=== PATIENT | female | born 1990 | race African-American/Black ===

== ENCOUNTER 2018-12-24 19:30 | Emergency (ER) | payer SELFPAY ==
--- NOTE | 2018-12-24 20:14 | EDM.PDOC ---
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 No trauma or other concern Review of systems: As per history of present illness and below otherwise all systems reviewed and negative. Past medical history: As per history of present illness and as reviewed below otherwise noncontributory. Surgical history: As per history of present illness and as reviewed below otherwise noncontributory. Social history: No reported history of drug or alcohol abuse. Family history: As per history of present illness and as reviewed below otherwise noncontributory. Physical exam: HEENT: Atraumatic, normocephalic, pupils reactive, negative for conjunctival pallor or scleral icterus, mucous membranes moist, throat clear, neck supple, nontender, trachea midline. Lungs: Clear to auscultation, breath sounds equal bilaterally, chest nontender. Heart: S1S2, regular, negative for clicks, rubs, or JVD. Abdomen: Soft, nondistended, nontender. Negative for masses or hepatosplenomegaly. Negative for costovertebral tenderness. Pelvis: Stable nontender. Genitourinary: Deferred. Rectal: Deferred. Extremities: Atraumatic, negative for cords or calf pain. Neurovascular unremarkable. Neuro: Awake, alert, oriented. Cranial nerves II through XII unremarkable. Cerebellum unremarkable. Motor and sensory unremarkable throughout. Exam nonfocal. Diagnostics: Quantitative beta CBC ABO Rh pelvic ultrasound Therapeutics: None Impression: #1 threatened Definitive disposition and diagnosis as appropriate pending reevaluation and review of above. 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 7 weeks Musculoskeletal History: Reports: None Neurological History: Reports: None Psychiatric History: Reports: None Endocrine/Metabolic History: Reports: None Hematologic History: Reports: None Immunologic History: Reports: None Oncologic (Cancer) History: Reports: None Dermatologic History: Reports: None - Infectious Disease History Infectious Disease History: Reports: Chicken Pox - Past Surgical History Head Surgeries/Procedures: Reports: None Social & Family History - Tobacco Use Smoking Status *Q: Never Smoker - Recreational Drug Use Recreational Drug Use: No ED ROS GENERAL - Review of Systems Review Of Systems: ROS reveals no pertinent complaints other than HPI. ED EXAM, GENERAL - Physical Exam Exam: See Below (See dictation) Course - Vital Signs Text/Narrative:: Patient's emergency room course is unremarkable ultrasound demonstrates a approximate 6 week intrauterine by crown-rump measurement with no heartbeat quantitative beta was 4000+ patient's ABO Rh was all negative RhoGAM was ordered I discussed case with OB on-call who agrees with follow-up on Wednesday I discussed with patient my concern about a possible missed patient be discharged on vaginal rest and follow-up on Wednesday Last Recorded V/S: Last Vital Signs Temp 36.6 C 12/24/18 22:31 Pulse 84 12/24/18 22:31 Resp 15 12/24/18 22:31 BP 117/61 12/24/18 22:31 Pulse Ox 98 12/24/18 19:45 - Orders/Labs/Meds Labs: Laboratory Tests 12/24/18 12/24/18 12/24/18 Range/Units 19:59 19:59 19:59 WBC 9.52 (4.0-11.0) K/uL RBC 4.31 (4.30-5.90) M/uL Hgb 11.2 L (12.0-16.0) g/dL Hct 35.2 L (36.0-46.0) % MCV 81.7 (80.0-98.0) fL MCH 26.0 L (27.0-32.0) pg MCHC 31.8 (31.0-37.0) g/dL RDW Std Deviation 44.7 (28.0-62.0) fl RDW Coeff of Tammy 15 (11.0-15.0) % Plt Count 307 (150-400) K/uL MPV 9.50 (7.40-12.00) fL Neut % (Auto) 57.5 (48.0-80.0) % Lymph % (Auto) 32.6 (16.0-40.0) % Thomas % (Auto) 9.2 (0.0-15.0) % Eos % (Auto) 0.6 (0.0-7.0) % Baso % (Auto) 0.1 (0.0-1.5) % Neut # (Auto) 5.5 (1.4-5.7) K/uL Lymph # (Auto) 3.1 H (0.6-2.4) K/uL Thomas # (Auto) 0.9 H (0.0-0.8) K/uL Eos # (Auto) 0.1 (0.0-0.7) K/uL Baso # (Auto) 0.0 (0.0-0.1) K/uL Nucleated RBC % 0.0 /100WBC Nucleated RBCs # 0 K/uL HCG, Quant 4632.0 mIU/mL Blood Type O NEGATIVE Antibody Screen Rhogam Indicated 12/24/18 Range/Units 19:59 WBC (4.0-11.0) K/uL RBC (4.30-5.90) M/uL Hgb (12.0-16.0) g/dL Hct (36.0-46.0) % MCV (80.0-98.0) fL MCH (27.0-32.0) pg MCHC (31.0-37.0) g/dL RDW Std Deviation (28.0-62.0) fl RDW Coeff of Tammy (11.0-15.0) % Plt Count (150-400) K/uL MPV (7.40-12.00) fL Neut % (Auto) (48.0-80.0) % Lymph % (Auto) (16.0-40.0) % Thomas % (Auto) (0.0-15.0) % Eos % (Auto) (0.0-7.0) % Baso % (Auto) (0.0-1.5) % Neut # (Auto) (1.4-5.7) K/uL Lymph # (Auto) (0.6-2.4) K/uL Thomas # (Auto) (0.0-0.8) K/uL Eos # (Auto) (0.0-0.7) K/uL Baso # (Auto) (0.0-0.1) K/uL Nucleated RBC % /100WBC Nucleated RBCs # K/uL HCG, Quant mIU/mL Blood Type TNP Antibody Screen NEGATIVE Rhogam Indicated YES Departure - Departure Time of Disposition: 22:33 Disposition: Home, Self-Care 01 Condition: Good Clinical Impression: First trimester bleeding - Discharge Information Referrals: PCP,Not In Area [Primary Care Provider] - Forms: ED Department Discharge Additional Instructions: The following information is given to patients seen in the emergency department who are being discharged to home. This information is to outline your options for follow-up care. We provide all patients seen in our emergency department with a follow-up referral. The need for follow-up, as well as the timing and circumstances, are variable depending upon the specifics of your emergency department visit. If you don't have a primary care physician on staff, we will provide you with a referral. We always advise you to contact your personal physician following an emergency department visit to inform them of the circumstance of the visit and for follow-up with them and/or the need for any referrals to a consulting specialist. The emergency department will also refer you to a specialist when appropriate. This referral assures that you have the opportunity for followup care with a specialist. All of these measure are taken in an effort to provide you with optimal care, which includes your followup. Under all circumstances we always encourage you to contact your private physician who remains a resource for coordinating your care. When calling for followup care, please make the office aware that this follow-up is from your recent emergency room visit. If for any reason you are refused follow-up, please contact the [facility] emergency department at and asked to speak to the emergency department charge nurse. Follow-up Wednesday [facility] [address] [place] [address] Vaginal rest as discussed return as needed as discussed
--- NOTE | 2018-12-24 21:15 | US ---
INDICATION: Vaginal bleeding and . FINDINGS: There is an early intrauterine identified. The average crown-rump length is approximately 6 mm. No cardiac activity is noted. Yolk sac is noted. 2 cm left ovarian cyst is noted. Right ovary is within normal limits. No free fluid is noted. IMPRESSION: 1. There is a 6 mm crown-rump length noted corresponding 6 weeks +4 days and EDC of 08/16/2019. No cardiac activity is identified. Findings concerning for a demise and recommend serial beta HCG levels with followup ultrasound as clinically indicated. 2. There is a left ovarian cyst. Right ovary is within normal limits. No significant free fluid is seen. Dictated by Amor Franks MD @ Dec 24 2018 9:06PM Signed by Dr. Amor Franks @ Dec 24 2018 9:14PM
== END 2018-12-24 22:52 | disposition home or self-care (01) ==
LOC: MW.ED 19:30
DX: O20.0 Threatened abortion (principal); Z3A.01 Less than 8 weeks gestation of pregnancy
CPT/HCPCS: 36415; 76801; 84702; 85025; 86850; 86900; 86901; 99284; J2792; 36430

== ENCOUNTER 2018-12-27 15:02 | Emergency (ER) | payer MEDICAID ==
--- NOTE | 2018-12-27 17:43 | EDM.PDOC ---
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 Patient states that on December 24 she was seen in this emergency room for a miscarriage at 6-7 weeks of . At that time she had vaginal bleeding and cramping. An ultrasound indicated no heartbeat. She presented today because she states she has been bleeding heavily since that time. She states she doesn't want any medications. She did not follow-up with TEXTILE MACHINE MECHANIC as instructed. She denies lightheadedness, fainting, nausea, dysuria or any other vaginal symptoms besides bleeding. abdominal pain Pain Score (Numeric/FACES): 10 - Related Data Allergies Allergy/AdvReac Type Severity Reaction Status Date / Time No Known Allergies Allergy Verified 12/27/18 15:21 Home Meds: Home Meds . 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 Musculoskeletal History: Reports: None Neurological History: Reports: None Psychiatric History: Reports: None Endocrine/Metabolic History: Reports: None Hematologic History: Reports: None Immunologic History: Reports: None Oncologic (Cancer) History: Reports: None Dermatologic History: Reports: None - Infectious Disease History Infectious Disease History: Reports: Chicken Pox - Past Surgical History Head Surgeries/Procedures: Reports: None Social & Family History - Tobacco Use Smoking Status *Q: Never Smoker - Caffeine Use Caffeine Use: Reports: None - Recreational Drug Use Recreational Drug Use: No ED ROS GENERAL - Review of Systems Review Of Systems: ROS reveals no pertinent complaints other than HPI. ED EXAM - Physical Exam Exam: See Below Exam Limited By: No Limitations General Appearance: Alert, No Apparent Distress Ears: Normal External Exam Nose: Normal Inspection Throat/Mouth: Normal Inspection Head: Atraumatic, Normocephalic Neck: Normal Inspection Respiratory/Chest: No Respiratory Distress, Lungs Clear, Normal Breath Sounds Cardiovascular: Normal Peripheral Pulses, Regular Rate, Rhythm, No Murmur GI/Abdominal Exam: Normal Bowel Sounds, Soft, Non-Tender, No Distention Back Exam: Normal Inspection Extremities: Normal Inspection Neurological: Alert, Oriented Psychiatric: Normal Affect, Normal Mood Skin Exam: Warm, Dry, Intact, Normal Color, No Rash Lymphatic: No Adenopathy Course - Vital Signs Last Recorded V/S: Last Vital Signs Temp 36.2 C 12/27/18 15:18 Pulse 104 H 12/27/18 15:18 Resp 20 12/27/18 15:18 BP 135/67 12/27/18 15:18 Pulse Ox 100 12/27/18 15:18 - Orders/Labs/Meds Labs: Laboratory Tests 12/27/18 12/27/18 Range/Units 15:50 15:50 WBC 9.85 (4.0-11.0) K/uL RBC 4.25 L (4.30-5.90) M/uL Hgb 11.0 L (12.0-16.0) g/dL Hct 34.4 L (36.0-46.0) % MCV 80.9 (80.0-98.0) fL MCH 25.9 L (27.0-32.0) pg MCHC 32.0 (31.0-37.0) g/dL RDW Std Deviation 45.1 (28.0-62.0) fl RDW Coeff of Tammy 15 (11.0-15.0) % Plt Count 288 (150-400) K/uL MPV 9.30 (7.40-12.00) fL Neut % (Auto) 65.4 (48.0-80.0) % Lymph % (Auto) 24.0 (16.0-40.0) % Beckham % (Auto) 9.8 (0.0-15.0) % Eos % (Auto) 0.7 (0.0-7.0) % Baso % (Auto) 0.1 (0.0-1.5) % Neut # (Auto) 6.4 H (1.4-5.7) K/uL Lymph # (Auto) 2.4 (0.6-2.4) K/uL Beckham # (Auto) 1.0 H (0.0-0.8) K/uL Eos # (Auto) 0.1 (0.0-0.7) K/uL Baso # (Auto) 0.0 (0.0-0.1) K/uL Nucleated RBC % 0.0 /100WBC Nucleated RBCs # 0 K/uL HCG, Quant 563.0 mIU/mL - Re-Assessments/Exams Free Text/Narrative Re-Assessment/Exam: 12/27/18 17:41 Patient was reassured that she is indeed scaring and that she should while nature to take its course. She is definitely to follow-up in TEXTILE MACHINE MECHANIC Departure - Departure Time of Disposition: 17:41 Disposition: Home, Self-Care 01 Condition: Good Clinical Impression: Miscarriage - Discharge Information Referrals: PCP,None [Primary Care Provider] - Meir Olivera MD [Physician] - Additional Instructions: The following information is given to patients seen in the emergency department who are being discharged to home. This information is to outline your options for follow-up care. We provide all patients seen in our emergency department with a follow-up referral. The need for follow-up, as well as the timing and circumstances, are variable depending upon the specifics of your emergency department visit. If you don't have a primary care physician on staff, we will provide you with a referral. We always advise you to contact your personal physician following an emergency department visit to inform them of the circumstance of the visit and for follow-up with them and/or the need for any referrals to a consulting specialist. The emergency department will also refer you to a specialist when appropriate. This referral assures that you have the opportunity for follow-up care with a specialist. All of these measure are taken in an effort to provide you with optimal care, which includes your follow-up. Under all circumstances we always encourage you to contact your private physician who remains a resource for coordinating your care. When calling for follow-up care, please make the office aware that this follow-up is from your recent emergency room visit. If for any reason you are refused follow-up, please contact the [facility] Emergency Department at and asked to speak to the emergency department charge nurse. [facility] [address] [place] [address] 1. Drink plenty of fluids 2. No sex, tampons, douching, nothing by vagina 3. Rest 4. Promptly make appointment with TEXTILE MACHINE MECHANIC for follow-up
== END 2018-12-27 18:22 | disposition home or self-care (01) ==
LOC: MW.ED 15:02
DX: O03.9 Complete or unspecified spontaneous abortion without complication (principal)
CPT/HCPCS: 36415; 84702; 85025; 99283; 99284

== ENCOUNTER 2019-02-09 02:18 | Emergency (ER) | payer MEDICAID, OTHER ==
[2019-02-09] MEDS ORDERED: Azithromycin 250 MG Tab PO STA (03:47)
--- NOTE | 2019-02-09 03:50 | EDM.PDOC ---
ED HPI GENERAL MEDICAL PROBLEM - General Chief Complaint: General Stated Complaint: POSSIBLE SINUS INFECTION Time Seen by Provider: 02/09/19 03:48 Source of Information: Reports: Patient - History of Present Illness INITIAL COMMENTS - FREE TEXT/NARRATIVE: HISTORY AND PHYSICAL: History of present illness: [Jacqui presents with sinus pain left greater than right one week increasing in severity she has secondary complaint of STI concern No fever nausea vomiting chills sweats ] Review of systems: As per history of present illness and below otherwise all systems reviewed and negative. Past medical history: As per history of present illness and as reviewed below otherwise noncontributory. Surgical history: As per history of present illness and as reviewed below otherwise noncontributory. Social history: No reported history of drug or alcohol abuse. Family history: As per history of present illness and as reviewed below otherwise noncontributory. Physical exam: HEENT: Atraumatic, normocephalic, pupils reactive, negative for conjunctival pallor or scleral icterus, mucous membranes moist, throat clear, neck supple, nontender, trachea midline. and as tenderness left greater than right supraorbital sinus Lungs: Clear to auscultation, breath sounds equal bilaterally, chest nontender. Heart: S1S2, regular, negative for clicks, rubs, or JVD. Abdomen: Soft, nondistended, nontender. Negative for masses or hepatosplenomegaly. Negative for costovertebral tenderness. Pelvis: Stable nontender. Genitourinary: Deferred. Rectal: Deferred. Extremities: Atraumatic, negative for cords or calf pain. Neurovascular unremarkable. Neuro: Awake, alert, oriented. Cranial nerves II through XII unremarkable. Cerebellum unremarkable. Motor and sensory unremarkable throughout. Exam nonfocal. Diagnostics: [UA GC Chlamydia Influenza strep ] Therapeutics: [Azithromycin Cipro ] Impression: [Sinusitis UTI ] Definitive disposition and diagnosis as appropriate pending reevaluation and review of above. head Pain Score (Numeric/FACES): 7 - Related Data Allergies Allergy/AdvReac Type Severity Reaction Status Date / Time No Known Allergies Allergy Verified 12/27/18 15:21 Home Meds: Home Meds . 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 Musculoskeletal History: Reports: None Neurological History: Reports: None Psychiatric History: Reports: None Endocrine/Metabolic History: Reports: None Hematologic History: Reports: None Immunologic History: Reports: None Oncologic (Cancer) History: Reports: None Dermatologic History: Reports: None - Infectious Disease History Infectious Disease History: Reports: Chicken Pox - Past Surgical History Head Surgeries/Procedures: Reports: None Social & Family History - Family History Family Medical History: Noncontributory - Tobacco Use Smoking Status *Q: Never Smoker - Caffeine Use Caffeine Use: Reports: None - Recreational Drug Use Recreational Drug Use: No ED ROS GENERAL - Review of Systems Review Of Systems: See Below ED EXAM, GENERAL - Physical Exam Exam: See Below Course - Vital Signs Last Recorded V/S: Last Vital Signs Temp 97.3 F 02/09/19 02:38 Pulse 90 02/09/19 02:38 Resp 18 02/09/19 02:38 BP 116/68 02/09/19 02:38 Pulse Ox 99 02/09/19 02:38 - Orders/Labs/Meds Orders: Active Orders 24 hr Category Date Time Status CHLAMYDIA AND GONORRHEA BY TMA Stat Lab 02/09/19 02:59 Ordered CULTURE URINE [RM] Stat Lab 02/09/19 02:52 Received Azithromycin [Zithromax] Med 02/09/19 03:47 Stat 2,000 mg PO NOW STA Labs: Laboratory Tests 02/09/19 02/09/19 Range/Units 02:52 02:52 Urine Color YELLOW Urine Appearance HAZY Urine pH 6.0 (5.0-8.0) Ur Specific Addis >= 1.030 (1.001-1.035) Urine Protein NEGATIVE (NEGATIVE) mg/dL Urine Glucose (UA) NEGATIVE (NEGATIVE) mg/dL Urine Ketones NEGATIVE (NEGATIVE) mg/dL Urine Occult Blood SMALL H (NEGATIVE) Urine Nitrite NEGATIVE (NEGATIVE) Urine Bilirubin NEGATIVE (NEGATIVE) Urine Urobilinogen 0.2 (<2.0) EU/dL Ur Leukocyte Esterase SMALL H (NEGATIVE) Urine RBC 2-4 (0-2/HPF) Urine WBC 10-15 (0-5/HPF) Ur Epithelial Cells MODERATE (NONE-FEW) Urine Bacteria FEW (NEGATIVE) Urine Mucus MODERATE (NONE-MOD) Urine HCG, Qual NEGATIVE (NEGATIVE) Meds: Medications Discontinued Medications Generic Name Dose Route Start Last Admin Trade Name Antonina PRN Reason Stop Dose Admin Azithromycin 2,000 mg 02/09/19 03:47 Zithromax PO 02/09/19 03:48 NOW STA Departure - Departure Time of Disposition: 03:49 Disposition: Home, Self-Care 01 Condition: Good Clinical Impression: Sinusitis, UTI (urinary tract infection) - Discharge Information Referrals: PCP,None [Primary Care Provider] - Additional Instructions: The following information is given to patients seen in the emergency department who are being discharged to home. This information is to outline your options for follow-up care. We provide all patients seen in our emergency department with a follow-up referral. The need for follow-up, as well as the timing and circumstances, are variable depending upon the specifics of your emergency department visit. If you don't have a primary care physician on staff, we will provide you with a referral. We always advise you to contact your personal physician following an emergency department visit to inform them of the circumstance of the visit and for follow-up with them and/or the need for any referrals to a consulting specialist. The emergency department will also refer you to a specialist when appropriate. This referral assures that you have the opportunity for follow-up care with a specialist. All of these measure are taken in an effort to provide you with optimal care, which includes your follow-up. Under all circumstances we always encourage you to contact your private physician who remains a resource for coordinating your care. When calling for follow-up care, please make the office aware that this follow-up is from your recent emergency room visit. If for any reason you are refused follow-up, please contact the [facility] emergency department at and asked to speak to the emergency department charge nurse. - My Orders Last 24 Hours: My Active Orders 02/09/19 02:52 CULTURE URINE [RM] Stat 02/09/19 02:59 CHLAMYDIA AND GONORRHEA BY TMA Stat 02/09/19 03:47 Azithromycin [Zithromax] 2,000 mg PO NOW STA - Assessment/Plan Last 24 Hours: My Active Orders 02/09/19 02:52 CULTURE URINE [RM] Stat 02/09/19 02:59 CHLAMYDIA AND GONORRHEA BY TMA Stat 02/09/19 03:47 Azithromycin [Zithromax] 2,000 mg PO NOW STA
== END 2019-02-09 04:16 | disposition home or self-care (01) ==
LOC: MW.ED 02:18
DX: J32.9 Chronic sinusitis, unspecified (principal); N39.0 Urinary tract infection, site not specified
CPT/HCPCS: 81001; 81025; 87086; 87491; 87591; 87804; 99283; A9270

== ENCOUNTER 2019-05-02 13:01 | Emergency (ER) | payer MEDICAID ==
--- NOTE | 2019-05-02 13:41 | EDM.PDOC ---
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 She states she is approximately 5 weeks and has not been able to get into an ANIMAL RIDE MANAGER as she "needs proof of " for her insurance will cover her seeing a provider. She states she also has some vaginal discharge with malodor. States some concern of STDs. Patient denies any fever, chills, headache, change in vision, syncope or near syncope. Denies any chest pain, neck pain/stiffness, shortness of breath or cough. Denies any abdominal pain, nausea, vomiting, diarrhea, constipation or dysuria. Has not noted any blood in urine or stool. Denies any low back pain, abdominal cramping or vaginal bleeding. Patient has been eating and drinking appropriately. Review of systems: As per history of present illness and below otherwise all systems reviewed and negative. Past medical history: As per history of present illness and as reviewed below otherwise noncontributory. Surgical history: As per history of present illness and as reviewed below otherwise noncontributory. Social history: See social history for further information Family history: As per history of present illness and as reviewed below otherwise noncontributory. Physical exam: General: Well developed and well nourished 29-year-old -[place] female. Alert and oriented. Nontoxic-appearing and in no acute distress. HEENT: Atraumatic, normocephalic, pupils equal and reactive bilaterally, negative for conjunctival pallor or scleral icterus, mucous membranes moist, TMs normal bilaterally, throat clear, neck supple, nontender, trachea midline. No drooling or trismus noted. No meningeal signs. No hot potato voice noted. Lungs: Clear to auscultation, breath sounds equal bilaterally, chest nontender. Heart: S1S2, regular rate and rhythm without overt murmur Abdomen: Soft, nondistended, nontender. Negative for masses or hepatosplenomegaly. Negative for costovertebral tenderness. Pelvis: Stable nontender. Skin: Intact, warm, dry. No lesions or rashes noted. Extremities: Atraumatic, moves all extremities per self without difficulty or deficits, negative for cords or calf pain. Neurovascular unremarkable. Neuro: Awake, alert, oriented. Cranial nerves II through XII unremarkable. Cerebellum unremarkable. Motor and sensory unremarkable throughout. Exam nonfocal. Notes: Swabs were obtained. upportive care measures were reviewed and discussed. Voices understanding and is agreeable to plan of care. Denies any further questions or concerns at this time. Diagnostics: THOMAS, UA, HCGU Therapeutics: None Prescription: Flagyl Impression: Encounter for medical screening examination Requesting test, positive Bacterial Vaginosis Plan: 1. Please abstain from sexual intercourse until the lab results have returned. Always use protection to minimized risk of STD exposure. 2. Start vitamin with folic acid as directed. Take the medications as directed. The gonorrhea and chlamydia tests are send out labs, therefore will not be available for 2-3 business days. 3. Please follow-up with an OBGYN for care. Definitive disposition and diagnosis as appropriate pending reevaluation and review of above. - Related Data Allergies Allergy/AdvReac Type Severity Reaction Status Date / Time No Known Allergies Allergy Verified 05/02/19 13:26 Home Meds: Home Meds Vits #93/Iron Fum/FA [ Formula Tablet] 1 each PO DAILY [History] metroNIDAZOLE [Flagyl] 500 mg PO BID 7 Days #14 tab 05/02/19 [Rx] Past Medical History HEENT History: Reports: None Cardiovascular History: Reports: None Respiratory History: Reports: None Gastrointestinal History: Reports: GERD Genitourinary History: Reports: None ANIMAL RIDE MANAGER History: Reports: Other ANIMAL RIDE MANAGER History: currently 7 weeks Musculoskeletal History: Reports: None Neurological History: Reports: None Psychiatric History: Reports: None Endocrine/Metabolic History: Reports: None Hematologic History: Reports: None Immunologic History: Reports: None Oncologic (Cancer) History: Reports: None Dermatologic History: Reports: None - Infectious Disease History Infectious Disease History: Reports: Chicken Pox - Past Surgical History Head Surgeries/Procedures: Reports: None Social & Family History - Family History Family Medical History: Noncontributory - Tobacco Use Smoking Status *Q: Never Smoker - Caffeine Use Caffeine Use: Reports: Soda - Recreational Drug Use Recreational Drug Use: No ED ROS GENERAL - Review of Systems Review Of Systems: Comprehensive ROS is negative, except as noted in HPI. ED EXAM, RENAL/ - Physical Exam Exam: See Below (See dictation) Course - Vital Signs Last Recorded V/S: Last Vital Signs Temp 98.7 F 05/02/19 13:27 Pulse 103 H 05/02/19 13:27 Resp 16 05/02/19 13:27 BP 124/71 05/02/19 13:27 Pulse Ox 99 05/02/19 13:27 - Orders/Labs/Meds Orders: Active Orders 24 hr Category Date Time Status CHLAMYDIA AND GONORRHEA BY TMA Stat Lab 05/02/19 13:39 Received Labs: Laboratory Tests 05/02/19 05/02/19 05/02/19 Range/Units 13:39 13:39 13:46 Urine Color YELLOW Urine Appearance CLEAR Urine pH 6.5 (5.0-8.0) Ur Specific [place] 1.025 (1.001-1.035) Urine Protein NEGATIVE (NEGATIVE) mg/dL Urine Glucose (UA) NEGATIVE (NEGATIVE) mg/dL Urine Ketones NEGATIVE (NEGATIVE) mg/dL Urine Occult Blood NEGATIVE (NEGATIVE) Urine Nitrite NEGATIVE (NEGATIVE) Urine Bilirubin NEGATIVE (NEGATIVE) Urine Urobilinogen 0.2 (<2.0) EU/dL Ur Leukocyte Esterase NEGATIVE (NEGATIVE) Urine HCG, Qual POSITIVE (NEGATIVE) Ruby species DNA NEGATIVE (NEGATIVE) Gardnerella DNA Probe POSITIVE H (NEGATIVE) Trichomonas DNA Probe NEGATIVE (NEGATIVE) Departure - Departure Time of Disposition: 14:59 Disposition: Home, Self-Care 01 Clinical Impression: Bacterial vaginosis in , Encounter for medical screening examination, confirmed by positive urine test - Discharge Information Prescriptions: metroNIDAZOLE [Flagyl] 500 mg PO BID 7 Days #14 tab Instructions: Bacterial Vaginosis, [id number] Referrals: PCP,None [Primary Care Provider] - Forms: ED Department Discharge Additional Instructions: The following information is given to patients seen in the emergency department who are being discharged to home. This information is to outline your options for follow-up care. We provide all patients seen in our emergency department with a follow-up referral. The need for follow-up, as well as the timing and circumstances, are variable depending upon the specifics of your emergency department visit. If you don't have a primary care physician on staff, we will provide you with a referral. We always advise you to contact your personal physician following an emergency department visit to inform them of the circumstance of the visit and for follow-up with them and/or the need for any referrals to a consulting specialist. The emergency department will also refer you to a specialist when appropriate. This referral assures that you have the opportunity for follow-up care with a specialist. All of these measure are taken in an effort to provide you with optimal care, which includes your follow-up. Under all circumstances we always encourage you to contact your private physician who remains a resource for coordinating your care. When calling for follow-up care, please make the office aware that this follow-up is from your recent emergency room visit. If for any reason you are refused follow-up, please contact the [facility] Emergency Department at and asked to speak to the emergency department charge nurse. [facility] [address] [place] [id number] [facility] [address] [place] [id number] 1. Please abstain from sexual intercourse until the lab results have returned. Always use protection to minimized risk of STD exposure. 2. Start vitamin with folic acid as directed. Take the medications as directed. ABSTAIN from sex while taking this medication - otherwise infection will likely not be treated fully. The gonorrhea and chlamydia tests are send out labs, therefore will not be available for 2-3 business days. 3. Please follow-up with an OBGYN for care. Sepsis Event Note - Evaluation Sepsis Screening Result: No Definite Risk - Focused Exam Vital Signs: Vital Signs Temp Pulse Resp BP Pulse Ox 05/02/19 13:27 98.7 F 103 H 16 124/71 99 Date Exam was Performed: 05/02/19 Time Exam was Performed: 14:58 - My Orders Last 24 Hours: My Active Orders 05/02/19 13:39 CHLAMYDIA AND GONORRHEA BY TMA Stat - Assessment/Plan Last 24 Hours: My Active Orders 05/02/19 13:39 CHLAMYDIA AND GONORRHEA BY TMA Stat
== END 2019-05-02 15:24 | disposition home or self-care (01) ==
LOC: MW.ED 13:01
DX: O23.591 Infection of other part of genital tract in pregnancy, first trimester (principal); B96.89 Other specified bacterial agents as the cause of diseases classified elsewhere; Z3A.01 Less than 8 weeks gestation of pregnancy
CPT/HCPCS: 81003; 81025; 87480; 87491; 87510; 87591; 87660; 99283

== ENCOUNTER 2019-05-15 16:27 | Emergency (ER) | payer MEDICAID ==
--- NOTE | 2019-05-15 17:05 | EDM.PDOC ---
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 She is approximately 7 weeks by lmp. Pt reports similar symptoms with previous miscarriage and is worried about the baby. Abdominal Pain Score (Numeric/FACES): 5 - Related Data Allergies Allergy/AdvReac Type Severity Reaction Status Date / Time No Known Allergies Allergy Verified 05/15/19 16:34 Home Meds: Home Meds Vits #93/Iron Fum/FA [ Formula Tablet] 1 each PO DAILY [History] Past Medical History HEENT History: Reports: None Cardiovascular History: Reports: None Respiratory History: Reports: None Gastrointestinal History: Reports: GERD Genitourinary History: Reports: None HERBOLOGIST History: Reports: , Spontaneous Other HERBOLOGIST History: currently 7 weeks Musculoskeletal History: Reports: None Neurological History: Reports: None Psychiatric History: Reports: None Endocrine/Metabolic History: Reports: None Hematologic History: Reports: None Immunologic History: Reports: None Oncologic (Cancer) History: Reports: None Dermatologic History: Reports: None - Infectious Disease History Infectious Disease History: Reports: Chicken Pox - Past Surgical History Head Surgeries/Procedures: Reports: None Social & Family History - Family History Family Medical History: Noncontributory - Tobacco Use Smoking Status *Q: Never Smoker - Caffeine Use Caffeine Use: Reports: Coffee, Soda - Recreational Drug Use Recreational Drug Use: No ED ROS GENERAL - Review of Systems Review Of Systems: See Below Constitutional: Reports: No Symptoms Respiratory: Reports: No Symptoms Cardiovascular: Reports: No Symptoms GI/Abdominal: Reports: Abdominal Pain. Denies: Nausea, Vomiting Neurological: Reports: No Symptoms ED EXAM - Physical Exam Exam: See Below Exam Limited By: No Limitations General Appearance: Alert, WD/WN, No Apparent Distress Head: Atraumatic, Normocephalic Respiratory/Chest: No Respiratory Distress, Lungs Clear, Normal Breath Sounds Cardiovascular: Regular Rate, Rhythm, No Murmur GI/Abdominal Exam: Soft, Non-Tender, No Distention Extremities: Normal Inspection Neurological: Alert, Oriented, Normal Cognition, Normal Gait Course - Vital Signs Last Recorded V/S: Last Vital Signs Temp 98.1 F 05/15/19 18:21 Pulse 95 05/15/19 18:21 Resp 18 05/15/19 18:21 BP 115/69 05/15/19 18:21 Pulse Ox 99 05/15/19 18:21 - Orders/Labs/Meds Labs: Laboratory Tests 05/15/19 05/15/19 05/15/19 Range/Units 17:00 17:00 17:00 WBC 9.54 (4.0-11.0) K/uL RBC 4.54 (4.30-5.90) M/uL Hgb 11.7 L (12.0-16.0) g/dL Hct 37.0 (36.0-46.0) % MCV 81.5 (80.0-98.0) fL MCH 25.8 L (27.0-32.0) pg MCHC 31.6 (31.0-37.0) g/dL RDW Std Deviation 46.7 (28.0-62.0) fl RDW Coeff of Tammy 16 H (11.0-15.0) % Plt Count 303 (150-400) K/uL MPV 9.60 (7.40-12.00) fL Neut % (Auto) 60.6 (48.0-80.0) % Lymph % (Auto) 28.7 (16.0-40.0) % [place] % (Auto) 10.1 (0.0-15.0) % Eos % (Auto) 0.5 (0.0-7.0) % Baso % (Auto) 0.1 (0.0-1.5) % Neut # (Auto) 5.8 H (1.4-5.7) K/uL Lymph # (Auto) 2.7 H (0.6-2.4) K/uL [place] # (Auto) 1.0 H (0.0-0.8) K/uL Eos # (Auto) 0.1 (0.0-0.7) K/uL Baso # (Auto) 0.0 (0.0-0.1) K/uL Nucleated RBC % 0.0 /100WBC Nucleated RBCs # 0 K/uL HCG, Quant 37279.0 mIU/mL Urine Color Urine Appearance Urine pH (5.0-8.0) Ur Specific [place] (1.001-1.035) Urine Protein (NEGATIVE) mg/dL Urine Glucose (UA) (NEGATIVE) mg/dL Urine Ketones (NEGATIVE) mg/dL Urine Occult Blood (NEGATIVE) Urine Nitrite (NEGATIVE) Urine Bilirubin (NEGATIVE) Urine Urobilinogen (<2.0) EU/dL Ur Leukocyte Esterase (NEGATIVE) Urine RBC (0-2/HPF) Urine WBC (0-5/HPF) Ur Epithelial Cells (NONE-FEW) Urine Bacteria (NEGATIVE) Blood Type O NEGATIVE 05/15/19 Range/Units 17:55 WBC (4.0-11.0) K/uL RBC (4.30-5.90) M/uL Hgb (12.0-16.0) g/dL Hct (36.0-46.0) % MCV (80.0-98.0) fL MCH (27.0-32.0) pg MCHC (31.0-37.0) g/dL RDW Std Deviation (28.0-62.0) fl RDW Coeff of Tammy (11.0-15.0) % Plt Count (150-400) K/uL MPV (7.40-12.00) fL Neut % (Auto) (48.0-80.0) % Lymph % (Auto) (16.0-40.0) % [place] % (Auto) (0.0-15.0) % Eos % (Auto) (0.0-7.0) % Baso % (Auto) (0.0-1.5) % Neut # (Auto) (1.4-5.7) K/uL Lymph # (Auto) (0.6-2.4) K/uL [place] # (Auto) (0.0-0.8) K/uL Eos # (Auto) (0.0-0.7) K/uL Baso # (Auto) (0.0-0.1) K/uL Nucleated RBC % /100WBC Nucleated RBCs # K/uL HCG, Quant mIU/mL Urine Color YELLOW Urine Appearance CLEAR Urine pH 6.5 (5.0-8.0) Ur Specific [place] 1.020 (1.001-1.035) Urine Protein NEGATIVE (NEGATIVE) mg/dL Urine Glucose (UA) NEGATIVE (NEGATIVE) mg/dL Urine Ketones NEGATIVE (NEGATIVE) mg/dL Urine Occult Blood NEGATIVE (NEGATIVE) Urine Nitrite NEGATIVE (NEGATIVE) Urine Bilirubin NEGATIVE (NEGATIVE) Urine Urobilinogen 0.2 (<2.0) EU/dL Ur Leukocyte Esterase NEGATIVE (NEGATIVE) Urine RBC 0-3 (0-2/HPF) Urine WBC 0-3 (0-5/HPF) Ur Epithelial Cells OCCASIONAL (NONE-FEW) Urine Bacteria FEW (NEGATIVE) Blood Type - Re-Assessments/Exams Free Text/Narrative Re-Assessment/Exam: VS stable and PE benign. ED work up shows IUP with lower fht likely due to gestational age. WO shows pt is RH negative. this was discussed with pt. She again denies any vaginal bleeding and declines pelvic exam to check. I discussed with her what rh neg status means and advised return for rhogam if she has any bleeding. pt comfortable with discharge. Strict return precautions discussed should symptoms worsen or any concerns arise. Departure - Departure Time of Disposition: 18:15 Disposition: Home, Self-Care 01 Condition: Good Clinical Impression: Abdominal pain affecting - Discharge Information *PRESCRIPTION DRUG MONITORING PROGRAM REVIEWED*: Not Applicable *COPY OF PRESCRIPTION DRUG MONITORING REPORT IN PATIENT NOEMÍ: Not Applicable Instructions: Abdominal Pain During , [id number] Referrals: PCP,None [Primary Care Provider] - Forms: ED Department Discharge Additional Instructions: My general discharge The following information is given to patients seen in the emergency department who are being discharged to home. This information is to outline your options for follow-up care. We provide all patients seen in our emergency department with a follow-up referral. The need for follow-up, as well as the timing and circumstances, are variable depending upon the specifics of your emergency department visit. If you don't have a primary care physician on staff, we will provide you with a referral. We always advise you to contact your personal physician following an emergency department visit to inform them of the circumstance of the visit and for follow-up with them and/or the need for any referrals to a consulting specialist. The emergency department will also refer you to a specialist when appropriate. This referral assures that you have the opportunity for follow-up care with a specialist. All of these measure are taken in an effort to provide you with optimal care, which includes your follow-up. Under all circumstances we always encourage you to contact your private physician who remains a resource for coordinating your care. When calling for follow-up care, please make the office aware that this follow-up is from your recent emergency room visit. If for any reason you are refused follow-up, please contact the [facility] Emergency Department at and asked to speak to the emergency department charge nurse. Sepsis Event Note - Evaluation Sepsis Screening Result: No Definite Risk - Focused Exam Date Exam was Performed: 05/17/19 Time Exam was Performed: 11:57
--- NOTE | 2019-05-15 17:53 | US ---
1st trimester obstetrical ultrasound: Multiple real-time images were obtained transabdominally. Dates: Current ultrasound: DENG 01/07/20, gestational age 6 weeks 1 day Single intrauterine gestational sac is seen. Small pole is noted. Amniotic fluid volume is normal. Yolk sac is also noted. Small corpus luteum cyst is noted within the left ovary measuring 1.5 cm which is believed to be incidental. Measurements: [place]-rump length: 0.42 cm - 6 weeks 1 day Heart rate: 120 bpm Impression: 1. Single intrauterine gestation. Dates as noted above. 2. Heart rate is slightly low likely relating to age of . 3. No complicating process is seen by ultrasound exam. Diagnostic code #1 This report was dictated in [place] Standard Time
== END 2019-05-15 18:24 | disposition home or self-care (01) ==
LOC: MW.ED 16:27
DX: O99.89 Other specified diseases and conditions complicating pregnancy, childbirth and the puerperium (principal); R10.30 Lower abdominal pain, unspecified; Z3A.01 Less than 8 weeks gestation of pregnancy
CPT/HCPCS: 36415; 76801; 76801-26; 81001; 84702; 85025; 86900; 86901; 99284-25